=== PATIENT | female | born 1975 | race Two or more races ===

== ENCOUNTER 2024-05-25 08:15 | Emergency (ER) | payer OTHER ==
[~2024-05-25] VITALS: Ht 157.5 cm; Wt 129.7 kg
[2024-05-25] MEDS ORDERED: KETOROLAC TROMETHAMINE 30 MG VIAL IM STA (09:14)
[2024-05-25] MEDS ORDERED: ORPHENADRINE CITRATE 30 MG/ML AMPUL IM STA (14:26)
[2024-05-25] MEDS ORDERED: DEXAMETHASONE SODIUM PHOSPHATE 4 MG/ML VIAL IM STA (14:26)
== END 2024-05-25 14:47 | disposition home or self-care (01) ==
LOC: ER 08:17
DX: M54.32 Sciatica, left side (principal)

== ENCOUNTER 2024-08-03 18:33 | Emergency (ER) | payer OTHER ==
[~2024-08-03] VITALS: Ht 160 cm; Wt 113.4 kg
[2024-08-03] MEDS ORDERED: LOSARTAN-HCTZ1 EAC2 (18:57)
[2024-08-03] MEDS ORDERED: FUROsemide 20 MG TABLET PO STA (21:54)
[2024-08-03] MEDS ORDERED: FUROsemide 20 MG TABLET PO ONE (22:03)
== END 2024-08-03 22:06 | disposition home or self-care (01) ==
LOC: ER 18:35
DX: M25.471 Effusion, right ankle (principal); M25.472 Effusion, left ankle; I10 Essential (primary) hypertension

== ENCOUNTER 2024-09-02 10:54 | Emergency (ER) | payer OTHER ==
[~2024-09-02] VITALS: Ht 157.5 cm; Wt 129.7 kg
[~2024-09-02 10:54] MED LIST: LOSARTAN-HCTZ1 EAC2
[2024-09-02] MEDS ORDERED: ISORDIL10 MG PO (11:55)
[2024-09-02] MEDS ORDERED: ATORVASTATIN CA10 MG PO (11:55)
== END 2024-09-02 13:33 | disposition home or self-care (01) ==
LOC: ER 10:56
DX: I87.2 Venous insufficiency (chronic) (peripheral) (principal); E66.89 Other obesity not elsewhere classified; I10 Essential (primary) hypertension

== ENCOUNTER 2024-10-05 18:55 | Emergency (ER) | payer OTHER ==
[~2024-10-05] VITALS: Ht 157.5 cm; Wt 129.7 kg
[~2024-10-05 18:55] MED LIST changes: +ATORVASTATIN CA10 MG PO; +ISORDIL10 MG PO
[2024-10-05] MEDS ORDERED: FUROsemide 20 MG/2 ML VIAL ONE (20:20)
[2024-10-05] MEDS ORDERED: FUROsemide 20 MG/2 ML VIAL IV ONE (20:30)
[2024-10-05 20:40] LABS: HEMATOCRIT 38.7 % (36.0-45.00); HEMOGLOBIN 12.9 g/dL (12.0-15.00); MEAN CELL VOLUME 96.2 fL (80.00-100.00); MEAN CORPUSCULAR HEMOGLOBIN 32.1 pg (27.00-32.0); MEAN CORPUSCULAR HGB CONC 33.3 g/dl (32.0-36.0); PLATELET COUNT 280 K/uL (150-450); RED BLOOD COUNT 4.02 M/uL (4.00-6.00)
[2024-10-05 21:01] LABS: ALBUMIN 3.1 gm/dL (3.4-5.0); BILIRUBIN TOTAL 0.68 mg/dL (0.3-1.2); CALCIUM 8.7 mg/dL (8.5-10.1); CREATININE SERUM 1.17 mg/dL (0.55-1.02); GFR 49.58; GLOBULINA 3.6 G/DL (2.4-3.5); POTASSIUM 4.44 mEq/L (3.5-5.1); TOTAL PROTEIN 6.7 gm/dL (6.4-8.2)
== END 2024-10-05 21:45 | disposition home or self-care (01) ==
LOC: ER 18:57
PROVIDERS: General Practice
DX: R60.0 Localized edema (principal); I10 Essential (primary) hypertension; E78.49 Other hyperlipidemia
CPT/HCPCS: 36415; 96365; 99282; J1940